=== PATIENT | female | born 1985 | race Caucasian/White ===

== ENCOUNTER 2018-06-29 11:51 | Emergency (ER) | payer MEDICAID ==
[~2018-06-29] VITALS: Ht 165.1 cm; Wt 107.7 kg
[2018-06-29 11:55] VITALS: BP 112/71
== END 2018-06-29 13:14 | disposition home or self-care (01) ==
LOC: ER 11:52
DX: S90.31XA Contusion of right foot, initial encounter (principal); Z91.041 Radiographic dye allergy status; Z88.8 Allergy status to other drugs, medicaments and biological substances; W23.1XXA Caught, crushed, jammed, or pinched between stationary objects, initial encounter; Y93.89 Activity, other specified; Y92.89 Other specified places as the place of occurrence of the external cause; Y99.8 Other external cause status
CPT/HCPCS: 73630; 99284; L4360

== ENCOUNTER 2024-05-05 20:20 | Inpatient (IN) | payer MEDICAID ==
[~2024-05-05] VITALS: Ht 172.7 cm; Wt 98.6 kg
[2024-05-05] MEDS: HYDROmorphone 1 mg/ml syringe IV ONE (21:09)
[2024-05-05 21:34] LABS: EOSINOPHILS # (AUTO) 0.1 X10'3 (0-0.9); HEMOGLOBIN 13.9 g/dl (12.0-16.0); MEAN CORPUSCULAR VOLUME 89.3 FL (78-98); MEAN PLATELET VOLUME 8.1 FL (7.4-10.4); WHITE BLOOD COUNT 7.7 X10'3 (4.5-11.0)
[2024-05-05 21:35] LABS: BASOPHILS % (AUTO) 0.6 % (0-1); EOSINOPHILS % (AUTO) 1.2 % (0-6); LYMPHOCYTES # (AUTO) 2.4 X10'3 (1.1-4.8); MEAN CORPUSCULAR HGB CONC 34.7 g/dL (33.0-36.5); MONOCYTES # (AUTO) 0.6 X10'3 (0-0.9); MONOCYTES % (AUTO) 7.3 % (2-12); NEUTROPHILS # (AUTO) 4.6 X10'3 (1.8-7.7); NEUTROPHILS % (AUTO) 59.9 % (42-75); PLATELET COUNT 262 X10'3 (140-440); RED BLOOD COUNT 4.47 X10'6 (4.20-5.60); RED CELL DISTRIBUTION WIDTH 13.8 % (11.5-14.5)
[2024-05-05] MEDS: normal saline 1000ML IV soln IVB ONE (21:39)
[2024-05-05 21:41] LABS: ALBUMIN 3.7 G/DL (3.4-5.0); ANION GAP 11 (8-16); BLOOD UREA NITROGEN 14 MG/DL (7-18); BUN/CREATININE RATIO 18.4 (10.0-20.0); CHLORIDE 103 MMOL/L (99-107); CREATININE 0.76 MG/DL (0.40-0.90); GLUCOSE 89 MG/DL (70-104); POTASSIUM 3.6 MMOL/L (3.5-5.1); SODIUM 138 MMOL/L (135-145); TOTAL CARBON DIOXIDE 24.3 MMOL/L (24-32); eCRCL 102 ML/MIN; eGFR 86 ML/MIN
[2024-05-05] MEDS ORDERED: ondansetron/PF 4mg/2ml inj IV PRN (22:35)
[2024-05-05] MEDS ORDERED: potassium Cl 20 mEq SR tablet PO PRN ×2 (22:35)
[2024-05-05] MEDS: normal saline 1000ml 1,000 ML IV SCH (22:35)
[2024-05-05] MEDS ORDERED: magnesium Cl slow-release 64mg tablet PO PRN (22:35)
[2024-05-05] MEDS ORDERED: mag hydrox/Alum hydrox/simeth 30ml oral suspension PO PRN (22:35)
[2024-05-05] MEDS ORDERED: acetaminophen 325mg tablet PO PRN (22:35)
[2024-05-05] MEDS ORDERED: magnesium sulf-water 4G/100mL 100 ML IV PRN (22:35)
[2024-05-05] MEDS ORDERED: metoclopramide 5 mg/ml inj IV PRN (22:35)
[2024-05-05] MEDS ORDERED: magnesium hydroxide 30ml (MOM) UD suspension PO PRN (22:35)
[2024-05-05] MEDS ORDERED: potassium Cl 40MEQ/1/2NS 520ml 520 ML IV PRN (22:35)
[2024-05-05 23:27] LABS: STREP A SCREEN NEGATIVE (Neg)
[2024-05-06] VITALS (12 sets, daily range): BP systolic 110–137; BP diastolic 66–84; PULSE 63–77; RESP 14–21; TEMP 97.6–98.8; O2SAT 95–100
[2024-05-06] MEDS: normal saline 1000ml 1,000 ML IV SCH (01:09)
[2024-05-06] MEDS ORDERED: CLOB60CR32 (02:12)
[2024-05-06] MEDS ORDERED: BUPR-122 (02:12)
[2024-05-06] MEDS ORDERED: LORA1POW6 (02:12)
[2024-05-06] MEDS ORDERED: PROP20TA6 (02:12)
[2024-05-06] MEDS ORDERED: ALBU2.5V10 (02:12)
[2024-05-06] MEDS ORDERED: OMEP40CA (02:12)
[2024-05-06] MEDS ORDERED: PHEN30CA21 (02:12)
[2024-05-06] MEDS ORDERED: ALBU90AE (02:12)
[2024-05-06] MEDS ORDERED: BUDE10.22 (02:12)
[2024-05-06] MEDS ORDERED: MONT-40 (02:12)
[2024-05-06 02:37] LABS: BASOPHILS % (AUTO) 0.4 % (0-1); EOSINOPHILS # (AUTO) 0.1 X10'3 (0-0.9); EOSINOPHILS % (AUTO) 1.3 % (0-6); HEMATOCRIT 39.4 % (35.0-45.0); HEMOGLOBIN 13.6 g/dl (12.0-16.0); LYMPHOCYTES # (AUTO) 2.3 X10'3 (1.1-4.8); LYMPHOCYTES % (AUTO) 29.7 % (21-51); MEAN CORPUSCULAR HEMOGLOBIN 30.7 PG (27.0-31.0); MEAN CORPUSCULAR HGB CONC 34.5 g/dL (33.0-36.5); MEAN CORPUSCULAR VOLUME 89.1 FL (78-98); MEAN PLATELET VOLUME 8.2 FL (7.4-10.4); MONOCYTES # (AUTO) 0.5 X10'3 (0-0.9); MONOCYTES % (AUTO) 6.8 % (2-12); NEUTROPHILS # (AUTO) 4.7 X10'3 (1.8-7.7); NEUTROPHILS % (AUTO) 61.8 % (42-75); PLATELET COUNT 243 X10'3 (140-440); RED BLOOD COUNT 4.42 X10'6 (4.20-5.60); RED CELL DISTRIBUTION WIDTH 13.5 % (11.5-14.5); WHITE BLOOD COUNT 7.6 X10'3 (4.5-11.0)
[2024-05-06 02:49] LABS: ALANINE AMINOTRANSFERASE 36 U/L (12-78); ALBUMIN 3.5 G/DL (3.4-5.0); ALBUMIN/GLOBULIN RATIO 0.9 (1.1-1.5); ALKALINE PHOSPHATASE 72 IU/L (46-116); ANION GAP 8 (8-16); ASPARTATE AMINO TRANSFERASE 33 U/L (10-37); BILIRUBIN,TOTAL 0.8 MG/DL (0.1-1.0); BLOOD UREA NITROGEN 13 MG/DL (7-18); BUN/CREATININE RATIO 15.9 (10.0-20.0); CALCIUM 8.8 MG/DL (8.5-10.1); CHLORIDE 106 MMOL/L (99-107); CREATININE 0.82 MG/DL (0.40-0.90); GLUCOSE 94 MG/DL (70-104); MAGNESIUM 2.1 MG/DL (1.5-2.4); POTASSIUM 3.6 MMOL/L (3.5-5.1); SODIUM 140 MMOL/L (135-145); TOTAL CARBON DIOXIDE 26.2 MMOL/L (24-32); TOTAL PROTEIN 7.6 G/DL (6.4-8.2); eCRCL 95 ML/MIN; eGFR 78 ML/MIN
[2024-05-06] MEDS ORDERED: BUPR100T13 PO (03:28)
[2024-05-06] MEDS: docusate sod 100mg capsule PO SCH (08:00)
[2024-05-06] MEDS: pantoprazole 40 MG vial IV SCH (08:00)
[2024-05-06] MEDS ORDERED: fentaNYL/PF 50MCG/1 ML 2ML syringe ONE ×2 (10:13→10:24)
[2024-05-06] MEDS ORDERED: MIDAZolam 1 MG/ML 5ML VIAL ONE ×2 (10:13→10:24)
[2024-05-06] MEDS ORDERED: LIDOcaine 2% Viscous 15ml cup ONE (10:13)
[2024-05-06] MEDS: morphine 2 MG/ML inj. syringe IV PRN (19:30)
[2024-05-07 06:24] LABS: BASOPHILS % (AUTO) 0.7 % (0-1); EOSINOPHILS # (AUTO) 0.1 X10'3 (0-0.9); EOSINOPHILS % (AUTO) 2.4 % (0-6); HEMATOCRIT 37.5 % (35.0-45.0); HEMOGLOBIN 12.9 g/dl (12.0-16.0); LYMPHOCYTES # (AUTO) 1.9 X10'3 (1.1-4.8); LYMPHOCYTES % (AUTO) 34.1 % (21-51); MEAN CORPUSCULAR HEMOGLOBIN 30.5 PG (27.0-31.0); MEAN CORPUSCULAR HGB CONC 34.3 g/dL (33.0-36.5); MEAN CORPUSCULAR VOLUME 88.9 FL (78-98); MEAN PLATELET VOLUME 8.2 FL (7.4-10.4); MONOCYTES # (AUTO) 0.4 X10'3 (0-0.9); MONOCYTES % (AUTO) 7.5 % (2-12); NEUTROPHILS # (AUTO) 3.1 X10'3 (1.8-7.7); NEUTROPHILS % (AUTO) 55.3 % (42-75); PLATELET COUNT 210 X10'3 (140-440); RED BLOOD COUNT 4.22 X10'6 (4.20-5.60); RED CELL DISTRIBUTION WIDTH 13.5 % (11.5-14.5); WHITE BLOOD COUNT 5.7 X10'3 (4.5-11.0)
[2024-05-07 06:45] LABS: ALANINE AMINOTRANSFERASE 40 U/L (12-78); ALBUMIN 3.2 G/DL (3.4-5.0); ALBUMIN/GLOBULIN RATIO 0.8 (1.1-1.5); ALKALINE PHOSPHATASE 64 IU/L (46-116); ANION GAP 7 (8-16); ASPARTATE AMINO TRANSFERASE 23 U/L (10-37); BILIRUBIN,TOTAL 0.7 MG/DL (0.1-1.0); BLOOD UREA NITROGEN 10 MG/DL (7-18); BUN/CREATININE RATIO 14.1 (10.0-20.0); CALCIUM 8.5 MG/DL (8.5-10.1); CHLORIDE 106 MMOL/L (99-107); CREATININE 0.71 MG/DL (0.40-0.90); GLUCOSE 89 MG/DL (70-104); MAGNESIUM 1.9 MG/DL (1.5-2.4); POTASSIUM 3.6 MMOL/L (3.5-5.1); SODIUM 138 MMOL/L (135-145); TOTAL CARBON DIOXIDE 25.2 MMOL/L (24-32); TOTAL PROTEIN 7.1 G/DL (6.4-8.2); eCRCL 109 ML/MIN; eGFR > 90 ML/MIN
[2024-05-07 07:00] VITALS: BP 121/70; PULSE 71; RESP 16; TEMP 98.2; O2SAT 98
[2024-05-07 08:00] VITALS: RESP 16; O2SAT 100
[2024-05-07 11:00] VITALS: BP 112/75; PULSE 75; RESP 18; TEMP 98; O2SAT 98
[2024-05-07 13:43] VITALS: RESP 16
[2024-05-07] MEDS: morphine 2 MG/ML inj. syringe IV PRN (13:43)
[2024-05-07] MEDS ORDERED: LIDOcaine 2% Viscous 15ml cup MM PRN (13:45)
== END 2024-05-07 19:06 | disposition home or self-care (01) | DRG 243 ==
LOC: ER 20:21 → ED HOLD 22:39 → EDBEDREQ 05-06 00:23 → ORTHO 4S 05-06 02:37
PROVIDERS: ADMIT Internal Medicine Critical Care Medicine; ATTEND Internal Medicine
PROC: 0D728ZZ Dilation of Middle Esophagus, Via Natural or Artificial Opening Endoscopic (ICD-10-PCS; principal; 2024-05-06)
DX: K22.0 Achalasia of cardia (principal); K22.2 Esophageal obstruction; E66.01 Morbid (severe) obesity due to excess calories; J45.909 Unspecified asthma, uncomplicated; G43.909 Migraine, unspecified, not intractable, without status migrainosus; F32.A Depression, unspecified; G89.29 Other chronic pain; K21.9 Gastro-esophageal reflux disease without esophagitis; E86.0 Dehydration; R07.0 Pain in throat; Z88.8 Allergy status to other drugs, medicaments and biological substances; Z87.891 Personal history of nicotine dependence; Z91.041 Radiographic dye allergy status; Z68.33 Body mass index [BMI] 33.0-33.9, adult
CPT/HCPCS: 36415; 43248; 70360; 80048; 80053; 83735; 85025; 87081; 87880; 99152; 99291; A4620; C1769; G0378; J1170; J2250; J2270; J2470; J3010; J7030